=== PATIENT | male | born 1960 | race Caucasian/White ===

== ENCOUNTER 2016-12-17 09:32 | Emergency (ER) | payer MEDICAID ==
[2016-12-17] MEDS ORDERED: Sodium Chloride 0.9% 10 ML Syringe FLUSH PRN (10:15)
[2016-12-17] MEDS ORDERED: hydrALAZINE 20 MG/ML SDV IVPUSH PRN (11:01)
[2016-12-17] MEDS ORDERED: Lisinopril 10 MG Tab PO SCH (11:04)
[2016-12-17] MEDS ORDERED: Metoprolol Tartrate 25 MG Tab PO SCH (11:15)
--- NOTE | 2016-12-17 11:17 | CR ---
Heart size upper limits of normal. Pulmonary vasculature within normal limits. No focal consolidation .
--- NOTE | 2016-12-17 11:34 | EDM.PDOC ---
ED HPI GENERAL MEDICAL PROBLEM - General Chief Complaint: Respiratory Problem Stated Complaint: SOB/ARM PAIN Time Seen by Provider: 12/17/16 10:13 Source of Information: Reports: Patient History Limitations: Reports: No Limitations - History of Present Illness INITIAL COMMENTS - FREE TEXT/NARRATIVE: This patient comes in because of dyspnea on exertion. This has been going on for several weeks. He frequently gets some arm tingling and numbness on the left associated with this. Today he became diaphoretic. He says he gets dyspneic after walking just a few feet. He gets some shortness of breath when he lays down he says it's immediate and it does just doesn't feel right. He does get some occasional swelling in his right leg sometimes little in the left. This used to be like a weekly occurrence but hasn't happened for about a month area he denies any history of blood clots. There has been no chest pain or palpitations. He was told in the past he had borderline hypertension. He doesn't get any medical care but says he gets his blood pressure checked occasionally at the pharmacy and says it's usually high. Hypertension runs in his mom's family. His father of an [place] at age 49 or 50. The patient was previously a smoker but quit about 10 years ago. His mom also has an enlarged heart. - Related Data Allergies Allergy/AdvReac Type Severity Reaction Status Date / Time No Known Allergies Allergy Verified 12/17/16 09:51 Home Meds: Home Meds NK [No Known Home Meds] 12/17/16 [History] Past Medical History - Past Health History Medical/Surgical History: Denies Medical/Surgical History Social & Family History - Tobacco Use Smoking Status *Q: Never Smoker ED ROS GENERAL - Review of Systems Review Of Systems: See Below Constitutional: Reports: No Symptoms HEENT: Reports: No Symptoms Respiratory: Reports: Shortness of Breath Cardiovascular: Reports: Dyspnea on Exertion Endocrine: Reports: No Symptoms GI/Abdominal: Reports: No Symptoms : Reports: No Symptoms Musculoskeletal: Reports: Other (See history of present illness regarding leg swelling) Skin: Reports: No Symptoms Neurological: Reports: No Symptoms Psychiatric: Reports: No Symptoms Hematologic/Lymphatic: Reports: No Symptoms Immunologic: Reports: No Symptoms ED EXAM, GENERAL - Physical Exam Exam: See Below Exam Limited By: No Limitations General Appearance: Alert, No Apparent Distress, Obese Eye Exam: Bilateral Eye: Normal Inspection Nose: Normal Inspection Throat/Mouth: Normal Inspection Head: Atraumatic Neck: Normal Inspection Respiratory/Chest: Lungs Clear Cardiovascular: Regular Rate, Rhythm, No Murmur Peripheral Pulses: 2+: Radial (L), Radial (R) GI/Abdominal: Non-Tender Back Exam: Normal Inspection Extremities: Normal Inspection Neurological: Alert, Oriented Psychiatric: Normal Affect Skin Exam: Warm, Dry Course - Vital Signs Last Recorded V/S: Last Vital Signs Temp 36.4 C 12/17/16 09:59 Pulse 98 12/17/16 11:22 Resp 16 12/17/16 09:59 BP 208/117 H 12/17/16 11:22 Pulse Ox 97 12/17/16 09:59 - Orders/Labs/Meds Orders: Active Orders 24 hr Category Date Time Status EKG Documentation Completion [RC] ASDIRECTED Care 12/17/16 10:15 Active Lisinopril [Prinivil] Med 12/17/16 11:04 Active 10 mg PO BID Metoprolol Tartrate [Lopressor] Med 12/17/16 11:15 Active 25 mg PO Q6H Sodium Chloride 0.9% [Saline Flush] Med 12/17/16 10:15 Active 10 ml FLUSH ASDIRECTED PRN hydrALAZINE [Apresoline] Med 12/17/16 11:01 Active 10 mg IVPUSH Q4H PRN Saline Lock Insert [OM.PC] Urgent Oth 12/17/16 10:14 Ordered EKG 12 Lead [EK] Urgent Ther 12/17/16 10:14 Ordered Medication Orders Hydralazine HCl (Apresoline) 10 mg IVPUSH Q4H PRN PRN Reason: Hypertension Lisinopril (Prinivil) 10 mg PO BID [facility] Last Admin: 12/17/16 11:22 Dose: 10 mg Metoprolol Tartrate (Lopressor) 25 mg PO Q6H [facility] Last Admin: 12/17/16 11:22 Dose: 25 mg Sodium Chloride (Saline Flush) 10 ml FLUSH ASDIRECTED PRN PRN Reason: Keep Vein Open Labs: Laboratory Tests 12/17/16 12/17/16 12/17/16 Range/Units 10:14 10:14 10:15 WBC 7.6 (4.5-11.0) K/uL RBC 5.92 H (4.30-5.90) M/uL Hgb 16.4 H (12.0-15.0) g/dL Hct 49.5 (40.0-54.0) % MCV 84 (80-98) fL MCH 28 (27-31) pg MCHC 33 (32-36) % Plt Count 288 (150-400) K/uL Neut % (Auto) 77 H (36-66) % Lymph % (Auto) 15 L (24-44) % [place] % (Auto) 6 (2-6) % Eos % (Auto) 1 L (2-4) % Baso % (Auto) 1 (0-1) % D-Dimer, Quantitative < 100 (0.0-400.0) ng/mL Sodium 138 L (140-148) mmol/L Potassium 3.6 (3.6-5.2) mmol/L Chloride 105 (100-108) mmol/L Carbon Dioxide 25 (21-32) mmol/L Anion Gap 11.6 (5.0-14.0) mmol/L BUN 16 (7-18) mg/dL Creatinine 1.2 (0.8-1.3) mg/dL Est Cr Clr Drug Dosing 73.65 mL/min Estimated GFR (MDRD) > 60 (>60) Glucose 130 H (74-106) mg/dL Calcium 8.8 (8.5-10.1) mg/dL Total Bilirubin 0.7 (0.2-1.0) mg/dL AST 19 (15-37) U/L ALT 25 (12-78) U/L Alkaline Phosphatase 130 H (46-116) U/L Troponin I 0.048 (0.000-0.056) ng/mL NT-Pro-B Natriuret Pep 996 H (5-125) pg/mL Total Protein 7.6 (6.4-8.2) g/dL Albumin 3.5 (3.4-5.0) g/dL Globulin 4.1 H (2.3-3.5) g/dL Albumin/Globulin Ratio 0.9 L (1.2-2.2) Meds: Medications Generic Name Dose Route Start Last Admin Trade Name Freq PRN Reason Stop Dose Admin Hydralazine HCl 10 mg 12/17/16 11:01 Apresoline IVPUSH Q4H PRN Hypertension Lisinopril 10 mg 12/17/16 11:04 12/17/16 11:22 Prinivil PO 10 mg BID CHRISTOPHER Administration Metoprolol Tartrate 25 mg 12/17/16 11:15 12/17/16 11:22 Lopressor PO 25 mg Q6H CHRISTOPHER Administration Sodium Chloride 10 ml 12/17/16 10:15 Saline Flush FLUSH ASDIRECTED PRN Keep Vein Open - Radiology Interpretation Free Text/Narrative:: Official radiology report is pending on the chest x-ray however it appears to show upper limits of normal heart size and slight cephalization but no pulmonary edema or effusion - Re-Assessments/Exams Free Text/Narrative Re-Assessment/Exam: 12/17/16 11:31 An EKG shows a sinus tachycardia at 10 1 bpm. There is a borderline prolonged MA interval possibly some left atrial enlargement and left axis deviation I don' t see any obvious ST or T changes. There is some artifact on this EKG Patient's blood pressure has remained in the 200 to 215 systolic range over the low 100s diastolic. Labs were reviewed. Overall I think this gentleman may be having some symptoms of coronary artery disease however I think it is most important to get his blood pressure under control before any further cardiac workup is attempted. I spoke with Dr. rodriguez and and he will admit the patient and he is given some orders for metoprolol lisinopril and hydralazine Departure - Departure Time of Disposition: 11:34 Disposition: Admitted As Inpatient 64 Condition: Fair Clinical Impression: Dyspnea on exertion, Uncontrolled hypertension - Discharge Information Referrals: PCP,None [Primary Care Provider] - - My Orders Last 24 Hours: My Active Orders 12/17/16 10:14 Saline Lock Insert [OM.PC] Urgent EKG 12 Lead [EK] Urgent 12/17/16 10:15 EKG Documentation Completion [RC] ASDIRECTED Sodium Chloride 0.9% [Saline Flush] 10 ml FLUSH ASDIRECTED PRN - Assessment/Plan Last 24 Hours: My Active Orders 12/17/16 10:14 Saline Lock Insert [OM.PC] Urgent EKG 12 Lead [EK] Urgent 12/17/16 10:15 EKG Documentation Completion [RC] ASDIRECTED Sodium Chloride 0.9% [Saline Flush] 10 ml FLUSH ASDIRECTED PRN
--- NOTE | 2016-12-17 13:15 | PCM.CONS ---
H&P History of Present Illness - General Date of Service: 12/17/16 Source of Information: Patient, Provider, RN Notes Reviewed History Limitations: Reports: No Limitations - History of Present Illness Initial Comments - Free Text/Narative: Mr. Soto is a 56-year-old gentleman who I been asked to see by Dr. Rico in the emergency department for further suggestions concerning evaluation and management of uncontrolled hypertension and chest pain. Patient has not received any type of medical care for several years. He did have an episode of pneumonia last year that was treated as an outpatient. Over the past few months he has had symptoms of pressure and heaviness in his chest associated with exertion. Symptoms have progressed the point that he is only able to walk a very short distances without developing these symptoms. Pain does radiate intermittently into the left arm and occasionally into the jaw. Symptoms typically resolve when he sits down and rests. There is associated diaphoresis and shortness of breath as well as some lightheadedness. Over the past week he' s developed mild symptoms at rest as well as some nocturnal symptoms. Risk factors include uncontrolled hypertension, hyperglycemia, strongly positive family history, previous [id number] smoking history (he quit 10 years ago). In the emergency department he is receiving 10 mg of IV hydralazine, 25 mg of oral metoprolol and 10 mg of lisinopril. Both his systolic and diastolic pressures have improved, initially blood pressure was 220/112. After medical intervention blood pressure is down to 180/89. - Related Data Allergies/Adverse Reactions: Allergies Allergy/AdvReac Type Severity Reaction Status Date / Time No Known Allergies Allergy Verified 12/17/16 09:51 Home Medications: Home Meds NK [No Known Home Meds] 12/17/16 [History] Past Medical History - Past Health History Medical/Surgical History: Denies Medical/Surgical History Social & Family History - Tobacco Use Smoking Status *Q: Never Smoker H&P Review of Systems - Review of Systems: Review Of Systems: See Below General: Reports: Weakness. Denies: Fever, Chills Pulmonary: Reports: Shortness of Breath. Denies: Wheezing, Pleuritic Chest Pain , Cough, Sputum, Hemoptysis Cardiovascular: Reports: Chest Pain, Dyspnea on Exertion, Lightheadedness. Denies: Palpitations, Orthopnea, PND, Edema Gastrointestinal: Reports: No Symptoms Musculoskeletal: Reports: No Symptoms Exam - Exam Exam: See Below - Vital Signs Vital Signs: Last Vital Signs Temp 97.6 F 12/17/16 09:59 Pulse 98 12/17/16 11:22 Resp 16 12/17/16 09:59 BP 208/117 H 12/17/16 11:22 Pulse Ox 97 12/17/16 09:59 Weight: 300 lb - Exam Quality Assessment: DVT Prophylaxis General: Alert, Oriented, Cooperative Neck: Supple, Trachea Midline, +2 Carotid Pulse wo Bruit Lungs: Clear to Auscultation, Normal Respiratory Effort Cardiovascular: Regular Rate, Regular Rhythm, Normal S1, Normal S2. No: Irregular Rhythm, Bradycardia, Tachycardia, Systolic Murmur, Diastolic Murmur GI/Abdominal Exam: Normal Bowel Sounds, Soft, Non-Tender, No Distention, Other ( Umbilical hernia) Back Exam: Normal Inspection, Full Range of Motion, NT Extremities: Non-Tender, Pedal Edema Skin: Warm, Dry, Intact - Patient Data Lab Results Last 24 hrs: Laboratory Results - last 24 hr 12/17/16 12/17/16 12/17/16 Range/Units 10:14 10:14 10:15 WBC 7.6 (4.5-11.0) K/uL RBC 5.92 H (4.30-5.90) M/uL Hgb 16.4 H (12.0-15.0) g/dL Hct 49.5 (40.0-54.0) % MCV 84 (80-98) fL MCH 28 (27-31) pg MCHC 33 (32-36) % Plt Count 288 (150-400) K/uL Neut % (Auto) 77 H (36-66) % Lymph % (Auto) 15 L (24-44) % [place] % (Auto) 6 (2-6) % Eos % (Auto) 1 L (2-4) % Baso % (Auto) 1 (0-1) % D-Dimer, Quantitative < 100 (0.0-400.0) ng/mL Sodium 138 L (140-148) mmol/L Potassium 3.6 (3.6-5.2) mmol/L Chloride 105 (100-108) mmol/L Carbon Dioxide 25 (21-32) mmol/L Anion Gap 11.6 (5.0-14.0) mmol/L BUN 16 (7-18) mg/dL Creatinine 1.2 (0.8-1.3) mg/dL Est Cr Clr Drug Dosing 73.65 mL/min Estimated GFR (MDRD) > 60 (>60) Glucose 130 H (74-106) mg/dL Calcium 8.8 (8.5-10.1) mg/dL Total Bilirubin 0.7 (0.2-1.0) mg/dL AST 19 (15-37) U/L ALT 25 (12-78) U/L Alkaline Phosphatase 130 H (46-116) U/L Troponin I 0.048 (0.000-0.056) ng/mL NT-Pro-B Natriuret Pep 996 H (5-125) pg/mL Total Protein 7.6 (6.4-8.2) g/dL Albumin 3.5 (3.4-5.0) g/dL Globulin 4.1 H (2.3-3.5) g/dL Albumin/Globulin Ratio 0.9 L (1.2-2.2) Result Diagrams: 12/17/16 10:14 12/17/16 10:14 Consult PN Assessment/Plan (1) Hyperglycemia SNOMED Code(s): 85343310 Code(s): R73.9 - HYPERGLYCEMIA, UNSPECIFIED Current Visit: Yes (2) Unstable angina SNOMED Code(s): 7018300 Code(s): I20.0 - UNSTABLE ANGINA Current Visit: Yes (3) Uncontrolled hypertension SNOMED Code(s): 27389656 Code(s): I10 - ESSENTIAL (PRIMARY) HYPERTENSION Current Visit: Yes Problem List Initiated/Reviewed/Updated: Yes My Orders Last 24 Hours: My Active Orders 12/17/16 11:01 hydrALAZINE [Apresoline] 10 mg IVPUSH Q4H PRN 12/17/16 11:04 Lisinopril [Prinivil] 10 mg PO BID 12/17/16 11:15 Metoprolol Tartrate [Lopressor] 25 mg PO Q6H Plan: ASSESSMENT AND RECOMMENDATIONS UNSTABLE ANGINA-history of progressive symptoms over the past few months very consistent with angina as well as several risk factors for coronary artery disease including a strongly positive family history. Discussed with Dr. Sigala department of cardiology in [facility]. Initial EKG shows no acute ST segment changes, initial troponin within normal range. Chest pressure has resolved now that blood pressure is under better control -Transfer to [facility] for further cardiac evaluation UNCONTROLLED HYPERTENSION-blood pressure markedly elevated on initial presentation at 220/112. Pressure better now after medical therapy. He received 25 mg of oral metoprolol, 10 mg of oral lisinopril, and 10 mg of IV hydralazine. HYPERGLYCEMIA UMBILICAL HERNIA HISTORY OF INTERMITTENT HEMATOCHEZIA -Will require outpatient colonoscopy after cardiac issues have been addressed Requesting Provider: Dr. Rico Date Consult Requested: 12/17/16 Reason for Consult: Chest pain, uncontrolled hypertension Patient History Reviewed: Yes Notified Requestor: Yes
== END 2016-12-17 13:57 ==
LOC: JP.ED 09:32
DX: I10 Essential (primary) hypertension (principal); R06.09 Other forms of dyspnea
CPT/HCPCS: 36415; 71020; 80053; 83880; 84484; 85025; 85379; 93005; 96374; 99285; A9270; J0360; J7050; 93010; 99284

== ENCOUNTER 2017-05-20 08:46 | Day surgery (SDC) | payer MEDICAID ==
[2017-05-20] MEDS ORDERED: Lactated Ringers 1,000 ML IV SCH (09:15)
[2017-05-20] MEDS ORDERED: fentaNYL 100 MCG/2 ML SDV ONE (09:22)
[2017-05-20] MEDS ORDERED: Midazolam 1 MG/ML 2 ML SDV ONE (09:22)
[2017-05-20] MEDS ORDERED: Propofol 200 MG/20 ML SDV ONE ×2 (09:22→11:31)
--- NOTE | 2017-05-20 13:53 | OR ---
DATE OF PROCEDURE: 05/20/2017 PREOPERATIVE DIAGNOSIS: Colon cancer screening. POSTOPERATIVE DIAGNOSIS: Sigmoid colitis, multiple colon polyps. PROCEDURE: Colonoscopy to the cecum with biopsy of sigmoid colitis; biopsy and then snare cautery polypectomy transverse colon; snare cautery polypectomy of 3 right colon polyps adjacent to each other, sent to the laboratory as 1 specimen; snare cautery polypectomy of transverse colon polyp. SURGEON: Christian Bowden MD ANESTHESIA: IV anesthesia with monitored anesthesia care. INDICATION: This is a 56-year-old white male, who is referred for a colonoscopy for colon cancer screening. He has never had a colonoscopic exam. I counseled him for the procedure including risks and alternatives, and he gave his informed consent to proceed. DESCRIPTION OF PROCEDURE: The patient was placed in the left lateral decubitus position. IV anesthesia was administered by the Anesthesia Service. Time-out was held. A rectal exam was performed, which was unremarkable. The flexible video Olympus colonoscope was introduced through his anus, up his rectum, out his colon all way to the cecum. En route, in the sigmoid colon area, we saw some erythema suggestive of colitis. We obtained biopsies of this site. In the transverse colon, we saw a polyp that was pedunculated, it was fairly small. We initially biopsied, but it was too large to remove using this technique. A snare was passed about its base. It was elevated up away from the bowel wall and amputated as electrocautery was applied. This polyp was aspirated up through the scope and captured in a polyp trap. In the right colon, we saw 3 fairly large polyps. These were all removed using the snare cautery polypectomy technique. This involved passing the snare about their base, elevating them up away from the bowel wall, and applying electrocautery as they were amputated. Two of them had to be removed with the polyp aspirated up on the end of the scope, the scope removed, and the polyp retrieved from the end of the scope. So we did this once. We ran the scope back up in and the third of the right colon polyps was aspirated up through the scope and captured in a polyp trap. The second large polyp was aspirated up on the scope and withdrawn with the polyp retrieved from the end of the scope. While we were running the scope back up to get the second large polyp, a small transverse colon polyp was seen, which was removed with the biopsy forceps. The scope was retroflexed in the rectum with the distal rectum appearing unremarkable. The scope was straightened and removed. He tolerated the procedure well. Christian Bowden MD /[id number]
== END 2017-05-20 13:20 | disposition home or self-care (01) ==
LOC: JP.SDS 08:46
PROVIDERS: ATTEND Surgery
DX: Z12.11 Encounter for screening for malignant neoplasm of colon (principal); D12.2 Benign neoplasm of ascending colon; D12.3 Benign neoplasm of transverse colon; K52.9 Noninfective gastroenteritis and colitis, unspecified; K62.89 Other specified diseases of anus and rectum; K63.0 Abscess of intestine; I25.10 Atherosclerotic heart disease of native coronary artery without angina pectoris; I10 Essential (primary) hypertension; Z95.1 Presence of aortocoronary bypass graft
CPT/HCPCS: 45380; 45385; J2250; J2704; J3010; J7120; 88305